=== PATIENT | female | born 1955 | race Caucasian/White ===

== ENCOUNTER → 2024-10-01 | Outpatient (CLI) | payer MEDICARE, OTHER ==
[2024-10-01 18:07] LABS: Basophils # (A) 0.12 X 10*3/uL (0.00-0.10); Basophils % (A) 2.1 %; Eosinophils # (A) 0.09 X 10*3/uL (0.04-0.35); Eosinophils % (A) 1.6 %; HCT 42.3 % (37.2-46.3); HGB 13.9 g/dL (12.0-15.0); Lymphocytes # (A) 1.66 X 10*3/uL (0.90-5.00); MCH 29.9 pg (27.0-32.0); MCHC 32.9 g/dL (32.0-37.0); Mean Platelet Volume 12.6 FL (9.5-12.2); Monocytes # (A) 0.51 X 10*3/uL (0.20-1.00); Monocytes % (A) 8.9 %; NRBC Per 100 WBC 0 X 10*3/uL (0.00-0.01); Neutrophils # (A) 3.34 X 10*3/uL (1.80-7.70); Neutrophils % (A) 58.2 %; Platelet Count 182 X 10*3/uL (140-440); RBC 4.65 X 10*6/uL (4.10-5.20); RDW 12.8 % (11.5-14.5); WBC 5.73 X 10*3/uL (4.50-10.00)
[2024-10-01 18:40] LABS: BUN/Creat Ratio 31.88 Ratio (12.00-20.00); Blood Urea Nitrogen 25.5 mg/dL (9.0-27.0); Carbon Dioxide 27.2 mmol/L (21.6-31.8); Chloride 102 mmol/L (96-109); Chol/HDL Ratio 2.95 Ratio; Glucose 89 mg/dL (70-110); LDL Cholesterol,Calculated 123.9 mg/dL (0.0-131.0); Potassium 3.7 mmol/L (3.5-5.5); Sodium 140 mmol/L (135-145)
[2024-10-01 18:41] LABS: ALT 13 U/L (8-44); AST 24 U/L (13-35); Albumin 4.1 g/dL (3.8-4.9); Albumin/Globulin Ratio 1.95 Ratio (1.60-3.17); Alkaline Phosphatase 104 U/L (41-126); Calcium 9.3 mg/dL (8.7-10.3); Globulin 2.1 g/dL (1.6-3.3); Total Bilirubin 0.3 mg/dL (0.3-1.2); Total Protein 6.2 g/dL (6.2-8.2)
[2024-10-01 20:53] LABS: NT-Pro-B-Type Natriuretic Pept 755 pg/mL (0-125)
== END | disposition home or self-care (01) ==
LOC: LABWHC1 13:20
DX: R06.09 Other forms of dyspnea (principal); I42.9 Cardiomyopathy, unspecified; E78.2 Mixed hyperlipidemia; I20.89 Other forms of angina pectoris; I48.21 Permanent atrial fibrillation
CPT/HCPCS: 36415; 80053; 80061; 83880; 85025; 85379